=== PATIENT | female | born 1970 | race African-American/Black ===

== ENCOUNTER → 2020-03-26 | Outpatient (CLI) | payer OTHER ==
--- NOTE | 2020-03-26 15:15 | RAD ---
EXAMINATION: VENOUS LOWER EXTREMITY LEFT HISTORY: Left calf pain COMPARISON/CORRELATION: None FINDINGS: Left lower extremity duplex venous ultrasound exam was performed. Grayscale, color Doppler, and spectral Doppler imaging was performed. Compression and augmentation was performed. The left common femoral vein, superficial femoral vein, popliteal vein, and saphenofemoral junction are normal with no evidence of deep venous thrombus. Visualized left calf veins are unremarkable. Normal compressibility and augmentation is evident. Left calf soft tissue edema is present. IMPRESSION: Left calf soft tissue edema. No evidence of deep venous thrombus involving the left lower extremity. Electronically signed by: Homer Hampton MD (03/26/2020 3:12 PM) [id number]
== END | disposition home or self-care (01) ==
LOC: US 14:33
PROVIDERS: ATTEND Nurse Practitioner Family
DX: R22.42 Localized swelling, mass and lump, left lower limb (principal); M79.662 Pain in left lower leg
CPT/HCPCS: 93971